=== PATIENT | female | born 1940 | race Caucasian/White ===

== ENCOUNTER 2018-01-18 01:07 | Outpatient (CLI) | payer MEDICARE, SELFPAY ==
[2018-01-18 11:33] LABS: Abs Immature Grans 0.02 k/cumm (0.0-0.09); Absolute Basophil Count 0.04 k/cumm (0.0-0.2); Absolute Eosinophil Count 0.17 k/cumm (0.0-0.7); Absolute Lymphocyte Count 1.99 k/cumm (1.2-3.4); Absolute Monocyte Count 0.63 k/cumm (0.11-0.7); Absolute Neutrophil Count 5.02 k/cumm (1.2-6.7); Basophils % 0.5; Eosinophils % 2.2; HCT 39.4 % (36.0-46.0); HGB 12.5 g/dL (12.0-15.5); Immature Grans % 0.3; Lymphocytes % 25.3; Mean Corp. HGB Concentration 31.7 g/dL (32.0-36.0); Mean Corpuscular Hemoglobin 25.1 pg (27.0-33.0); Mean Platelet Volume 10.4 fL (8.0-11.0); Neutrophils % 63.7; Platelet Count 237 x1000/uL (130-400); RBC 4.99 m/cumm (4.00-5.20); RBC Distribution Width 14.9 % (11.7-14.6); White Blood Cell Count 7.87 k/cumm (4.4-10.8)
[2018-01-18 11:48] LABS: ALT 17 U/L (12-78); AST 18 U/L (15-37); Albumin 3.8 g/dL (3.4-5.0); Alkaline Phosphatase 75 U/L (46-116); Anion Gap 8.3 mmol/L (3-11); BUN 18 mg/dL (7-18); Bilirubin, Total 0.6 mg/dL (0.2-1.0); CO2 29.7 mmol/L (21.0-32.0); CREATININE 0.64 mg/dL (0.55-1.02); Calcium 8.9 mg/dL (8.5-10.1); Chloride 104 mmol/L (98-107); Cholesterol 213 mg/dL (50-200); Glucose 102 mg/dL (70-100); HDL Cholesterol 67 mg/dL (40-60); LDL CHOLESTEROL 120 mg/dL (<100); Potassium 4.5 mmol/L (3.5-5.1); Sodium 142 mmol/L (136-145); Total Protein 7.1 g/dL (6.4-8.2); Triglyceride 139 mg/dL (30-150)
== END 2018-01-18 01:27 ==
PROVIDERS: PCP Family Medicine; Visit Provider Family Medicine
DX: I10 Essential (primary) hypertension (principal); E78.00 Pure hypercholesterolemia, unspecified
CPT/HCPCS: 36415; 80053; 80061; 83721; 85025

== ENCOUNTER 2019-03-24 09:34 | Outpatient (CLI) | payer MEDICARE, SELFPAY ==
[2019-03-24 13:39] LABS: Anion Gap 9.1 mmol/L (3-11); BUN 21 mg/dL (7-18); CO2 29.9 mmol/L (21.0-32.0); CREATININE 0.76 mg/dL (0.55-1.02); Calcium 9.6 mg/dL (8.5-10.1); Calculated LDL 129 mg/dL; Chloride 102 mmol/L (98-107); Cholesterol 218 mg/dL (<200); Glucose 106 mg/dL (74-106); HDL Cholesterol 66 mg/dL (40-60); Sodium 141 mmol/L (136-145); Triglyceride 115 mg/dL (<150)
[2019-03-24 14:10] LABS: Hemoglobin A1C 5.9 % (4.5-6.2)
== END 2019-03-24 09:54 ==
PROVIDERS: PCP Family Medicine; Visit Provider Nurse Practitioner Family
DX: E78.5 Hyperlipidemia, unspecified (principal); R73.01 Impaired fasting glucose
CPT/HCPCS: 36415; 80048; 80061; 83036

== ENCOUNTER 2019-05-05 01:22 | Outpatient (CLI) | payer MEDICARE, SELFPAY ==
--- NOTE | 2019-05-05 12:11 | DI.MAMMO_ITS ---
EXAM: MG MAMMO SCREENING CLINICAL HISTORY: SCREENING Z12.39. TECHNIQUE: Full field digital CC and MLO mammographic images were obtained with 3D tomosynthesis and utilizing computer aided detection (CAD). COMPARISON: 2009 through 2016 FINDINGS: Breast density: B Masses/Architectural Distortion: None seen. Microcalcifications: No suspicious pleomorphic-type calcifications are seen. Skin Thickening/Nipple Retraction: None. Axilla: Unremarkable. IMPRESSION: 1. BI-RADS category 1, negative. No significant interval change with no specific features of maligna ncy noted. 2. Unless there is more urgent need, screening mammography is recommended, as per [employer] guidelines. BI-RADS Cat 1 - Negative Breast Density - Category B - Scattered areas of fibroglandular density A negative radiographic report should not delay biopsy if a dominant or clinically suspicious mass is present. Up to ten percent of cancers are not identified on mammography. A negative report may reinforce clinical impression. Adenosis and dense breasts may obscure an underlying neoplasm. False positive reports average 6 to 10%. Patient will receive a letter notifying them of these results.
== END 2019-05-05 01:42 ==
PROVIDERS: PCP Nurse Practitioner Family; Visit Provider Nurse Practitioner Family
DX: Z12.31 Encounter for screening mammogram for malignant neoplasm of breast (principal)
CPT/HCPCS: 77063; 77067

== ENCOUNTER → 2019-05-15 11:10 | Outpatient (BNVA) | payer MEDICARE, SELFPAY | PROVIDERS: PCP Nurse Practitioner Family; Referring Provider Nurse Practitioner Family; Visit Provider Physical Therapy Assistant | DX: Z86.010 Personal history of colon polyps (principal); Z12.11 Encounter for screening for malignant neoplasm of colon ==

== ENCOUNTER 2019-06-09 07:20 | Day surgery (SDC) | payer MEDICARE, SELFPAY ==
--- NOTE | 2019-06-09 07:01 | W.COLOREPORT ---
Date of service: 06/09/19 Time of Service: 08:29 Colonoscopy Report Date of procedure: 06/09/19 Pre-op diagnosis general: Colon Cancer Screening and Hx of colon polyps Post-op diagnosis procedure note: other (Polyps and mild batista-diverticulosis) Procedure: Colonoscopy with polypectomy Surgeon: Ashley Goldstein Anesthesia proc note operative: other (General/ ASA 3/ Thu Aly, KIMBERLY) Estimated blood loss (mL): 3 Pathology: other (Rectal polyp and descending polyp) Complications: None Disposition: same day Indications: 78 y/o female with history of HTN, hyperlipidemia and chronic low back pain presents for colonoscopy screening pre-op. Her last screening was in 2012, which was remarkable for tubular adenoma. She denies a family history of colon cancer. She denies any changes in bowel habits including bloody or black tarry stools, abdominal pain, or diarrhea. She does report occasional constipation which she directly relates to her use of tramadol for back pain. She takes OTC Miralax or stool softners to resolve the issue. Prep: Miralax/Dulcolax Procedure Start Time: :29 Procedure End Time: 08:51 Retraction Time: 15 minutes Findings: 2 small polyps and mild diverticulosis of the entire colon Procedure Description: After informed consent was obtained the patient was taken to the procedure room and placed in a left decubitous position. Monitors were applied and a time out was done. The patients name, date of , procedure, allergies to medications and metal in their body was reviewed. The patient was then sedated. Once sedated and comfortable a rectal exam was done. External exam was normal. Internal exam revealed a normal sphincter tone and no palpable masses. The scope was then introduced and retro-flexed. No internal hemorrhoids were identified. The scope was then advanced to the cecum without difficulty. The TI and appendiceal orifice were identified. The prep was good. The scope was then slowly retracted over 15 minutes back into the rectum. Polyps were removed with cold forceps in the rectum and descending colon. Mild batista-diverticulosis was noted. The scope was removed and the patient was woken up and taken back to Same day surgery in stable condition. The patient tolerated the procedure well and there were no immediate complications. Follow up: The patient should follow up in 3-5 years depending on her health, unless they develop changes in bowel habits or other new gastrointestinal complaints.
--- NOTE | 2019-06-09 07:02 | W.PM.DSUDISC ---
Discharge Plan Disposition Patient Disposition: HOME Condition: Good Discharge Details Reason For Visit: Colon Cancer Screening/ Hx of polyp Attending Provider: Ashley Goldstein Primary Care Provider: Lulu Ricci Home Meds and New Rx's Prescriptions: Continued lovastatin 40 mg tablet 40 mg PO HS Qty: 90 RF: 4 Prevnar 13 (PF) 0.5 mL syringe 0.5 ml IM ONCE Qty: 0.5 RF: 0 triamcinolone acetonide 0.5 % ointment 1 applic Topical BID PRN (Reason: dermatitis) Qty: 15 RF: 1 cholecalciferol (vitamin D3) 4,000 unit capsule 4,000 unit PO DAILY RF: 0 aspirin [Aspir-81] 81 MG tablet,delayed release (DR/EC) 81 mg PO DAILY RF: 0 vitamin E 400 UNIT capsule 400 unit PO DAILY RF: 0 polyethylene glycol 3350 [Miralax] 17 GM powder in packet 17 g PO DAILY PRNQty: 255 RF: 0 acetaminophen [Acetaminophen Extra Strength] 500 MG tablet 1,000 mg PO Q6H PRN PRNRF: 0 docusate sodium 100 MG capsule 100 mg PO HS PRNRF: 0 hydrochlorothiazide 12.5 mg capsule 12.5 mg PO DAILY Qty: 90 RF: 3 tramadol 50 mg tablet 50 mg PO PRN PRN (Reason: pain) Qty: 30 RF: 5 multivitamin [Multi-Day] 1 EACH tablet 1 tab PO DAILY RF: 0 Discontinued polyethylene glycol 3350 17 gram/dose powder 238 g PO ONCE Qty: 238 RF: 0 bisacodyl [Dulcolax (bisacodyl)] 5 mg tablet,delayed release (DR/EC) 5 mg PO ONCE Qty: 4 RF: 0 No Action meloxicam [Mobic] 15 mg tablet 15 mg PO DAILY PRN (Reason: chronic low back pain) RF: 0 Discharge Instructions Instructions: Diverticulosis (DC), Colorectal Polyps (DC) Additional Instructions: Findings: 2 small polyps Mild batista-diverticulosis Follow up: 3-5 years Please call if you develop: fevers >101.5 Nausea or Vomiting Abdominal pain that is not transient DAY SURGERY UNIT POST ENDOSCOPY INSTRUCTIONS 1. Because there will be medication in your system for the next 24 hours, you may feel a little sleepy. Your coordination will be affected. Therefore: a. Do not drive or operate dangerous equipment for 24 hours. b. Do not drink alcohol beverages for 24 hours (not even beer). c. Plan to go home and rest for the day. 2. Generally there are no restrictions on your activity after a day or so has gone by, but you may feel a bit fatigued for a few days. 3 After you arrive home you may have a light meal and return to a normal diet as you can tolerate it without feeling sick to your stomach. 4. After surgery, you may feel pain or discomfort. This should be only transient, but if it persists please contact your doctor. 5. If there are any questions regarding the findings of your procedure, please feel free to contact your doctor. 6. If you are unable to contact your doctor with a problem, contact the hospital at [phone]. 7. Continue all your regular medications unless directed otherwise. I understand the above instructions and have no questions. Signature of Patient or Responsible Adult Escort Date/Time Name of Responsible Adult Escort Signature of Nurse Date/Time Activity:: Activity as Tolerated Diet:: High Fiber diet Discharge Orders Discharge Orders: Discharge Order (Routine); Ordered 06/09/19 Ordered By: Ashley Goldstein
[2019-06-09 07:28] VITALS: BP 137/82; PULSE 75; RESP 16; TEMP 36.9; O2SAT 98
[2019-06-09] MEDS: Lactated Ringers 1,000 ML 80 ML IV (07:57)
--- NOTE | 2019-06-09 08:30 | BOWEL_PTH ---
PATIENT: Ivelisse Lange LOC: [facility] U#:[id number] AGE/SX: 78/F ROOM: RE06/09/[address]: Ashley Goldstein MD : [id number] BED: DIS: 06/09/2019 SPEC #: [id number] RECD: 06/09/19 12:36 STATUS: MIK REQ #: [id number] MARJORIE: 06/09/19 08:[address]: Ashley Goldstein DEPT: Surgical Specimen RECD BY: Melody uJdge ENTERED: 06/09/19 12:38 SP TYPE: Bowel OTHR DR: Lulu Ricci, [facility] Tissues: 1 - BIOPSY BOWEL 2 - BIOPSY BOWEL Procedures: GROSS AND MICRO LEVEL 4 Comments: [id number]
[2019-06-09 09:37] VITALS: BP 129/61; PULSE 62; RESP 16; TEMP 36.4; O2SAT 100
[2019-06-09] MEDS: Tetracaine 0.5% 4 ML BTL OP (09:47)
== END 2019-06-09 10:00 | disposition home or self-care (01) ==
LOC: SUR 07:21
PROVIDERS: PCP Nurse Practitioner Family; Visit Provider Surgery
PROC: 0DJD8ZZ Inspection of Lower Intestinal Tract, Via Natural or Artificial Opening Endoscopic (ICD-10-PCS; CPT 45378; principal; 2019-06-09 08:15)
DX: Z12.11 Encounter for screening for malignant neoplasm of colon (principal); D12.4 Benign neoplasm of descending colon; K62.1 Rectal polyp; K57.30 Diverticulosis of large intestine without perforation or abscess without bleeding; Z86.010 Personal history of colon polyps; I10 Essential (primary) hypertension
CPT/HCPCS: 45380; 88305

== ENCOUNTER 2019-11-24 10:52 | Outpatient (CLI) | payer MEDICARE, SELFPAY ==
--- NOTE | 2019-11-24 10:15 | DI.RAD_ITS ---
EXAM: XR LUMBAR SPINE COMPLETE CLINICAL HISTORY: evaluate LBP. TECHNIQUE: 2D digital imaging was performed. COMPARISON: No exams were available for comparison FINDINGS: The vertebral bodies are well maintained in height. There is severe narrowing of the L1-2, L3-4 and L4-5 disc spaces and moderate narrowing of the L 2 3 disc space. Facet degenerative changes are pres ent throughout, greatest at L4-5. There is degenerative scoliosis. There are also degenerative rios ges of the SI joints. IMPRESSION: Advanced degenerative changes. DATA REPOSITORY: RADIATION DOSE DELIVERED:
--- NOTE | 2019-11-24 10:15 | DI.RAD_ITS ---
EXAM: XR HIP RT AP LAT ONLY CLINICAL HISTORY: evaluate LBP and R hip pain. TECHNIQUE: 2D digital imaging was performed. COMPARISON: No exams were available for comparison FINDINGS: BONES: No acute fracture is present. No bony destructive lesion is seen. There is mild spurring at th e acetabulum as well as SI joint. JOINTS: No dislocation present. SOFT TISSUE: Normal. IMPRESSION: Mild degenerative changes. DATA REPOSITORY: RADIATION DOSE DELIVERED:
== END 2019-11-24 11:12 ==
PROVIDERS: PCP Nurse Practitioner Family; Referring Provider Nurse Practitioner Family; Visit Provider Student in an Organized Health Care Education/Training Program
DX: G89.29 Other chronic pain (principal); M54.5 Low back pain; M47.816 Spondylosis without myelopathy or radiculopathy, lumbar region; M16.11 Unilateral primary osteoarthritis, right hip
CPT/HCPCS: 99203; 99214; 72110; 73502

== ENCOUNTER 2019-12-03 02:56 | Outpatient (CLI) | payer MEDICARE, SELFPAY ==
--- NOTE | 2019-12-03 07:45 | DI.MRI_ITS ---
EXAM: MR LUMBAR SPINE WO CLINICAL HISTORY: LOW BACK PAIN, M54.5,G89.29. TECHNIQUE: Multiplanar multisequence MRI was performed. COMPARISON: No exams were available for comparison FINDINGS: MR examination of lumbosacral spine was performed according to the usual protocol. There is a mild b iconvex thoracolumbar scoliosis. Note is made of normal diameter of aorta. Unremarkable appearance of the kidneys as visualized. No significant bony signal abnormality identified in the lumbar region. There is loss of height of i ntervertebral discs throughout the lower thoracic and lumbar spine. There are disc bulges at multipl e levels without evidence of a focal disc herniation. The conus medullaris appears intact. At T11-12, there is a moderate disc bulge. No disc herniation. No neural foraminal stenosis, central canal stenosis, or abnormality of the conus. No significant findings at T12-L1. At L1-2 there is a mild disc bulge and there is mild deformity of the lateral wall of the spinal renata l secondary to facet hypertrophy. Moderate bilateral facet arthropathy. No disc herniation, central canal spinal stenosis, or neural foraminal stenosis. At L2-3 there are no significant findings. At L3-4 there is moderate bilateral hypertrophic facet arthropathy with mild deformity of the lateral reynolds of the spinal canal bilaterally. No central canal spinal stenosis. There is mild bilateral n eural foraminal stenosis. There is no disc herniation. At L4-5 there is moderate bilateral hypertrophic facet arthropathy with mild deformity of the lateral reynolds of the spinal canal bilaterally, no central canal spinal stenosis or neural foraminal stenosis . At L5-S1 there is a mild disc bulge with no disc herniation. There are moderate changes of facet art hropathy. No central canal spinal stenosis or neural foraminal stenosis. IMPRESSION: Multilevel facet arthropathy as described above. No disc herniation in the lumbar region. No signif icant central spinal canal spinal stenosis. Mild bilateral neural foraminal stenosis noted at L3-4. DATA REPOSITORY:
== END 2019-12-03 03:16 ==
PROVIDERS: PCP Nurse Practitioner Family; Visit Provider Student in an Organized Health Care Education/Training Program
DX: G89.29 Other chronic pain (principal); M54.5 Low back pain; M47.816 Spondylosis without myelopathy or radiculopathy, lumbar region
CPT/HCPCS: 72148

== ENCOUNTER 2020-02-17 10:27 | Outpatient (CLI) | payer MEDICARE, SELFPAY ==
--- NOTE | 2020-02-17 06:00 | DI.RAD_ITS ---
EXAM: XR PAIN CLINIC SACRIOILIAC 2V CLINICAL HISTORY: Dx: Sacroiliac Joint Dysfunction. TECHNIQUE: Fluoroscopy was provided for the referring physician for guidance with performing injecti on procedure. COMPARISON: No exams were available for comparison FINDINGS: Please see procedure note for details. Fluoro time: 32.0 s, 14.51 mGy RADIATION DOSE DELIVERED:
[2020-02-17 10:37] VITALS: BP 143/86; PULSE 68; RESP 16; TEMP 36.7; O2SAT 98
--- NOTE | 2020-02-17 11:38 | PDOC.PAIN_ITS ---
Pain Clinic Procedure Note Procedure Note Procedure Note: INTRA-ARTICULAR SI JOINT INJECTION ANTIONE FLORENTINO has been referred to the [facility] for intra- articular SI joint injection. pre-operative diagnosis: disorder of sacrum post-operative diagnosis: same as above COMMENTS: right sided low back pain with radiation to buttock. patient was evaluated by Ms Keren Cervantes APRN in clinic and referred for a diagnostic and therapeutic right SI joint injection. Patient was interviewed and the medical record reviewed. There were no medical, pharmacologic, radiographic or other structural contraindications to attempting fluoroscopically guided intra-articular SI joint injection. Risks and expected side effects as well as potential benefit of the procedure were reviewed and voiced concerns addressed. The printed consent form was signed and witnessed. Standard time-out procedure was performed. Patient was placed in the prone position on the fluoroscopy table and automated blood pressure cuff and pulse oximeter applied. The skin entry point for appr oaching right SI joints was identified under the most advantageous fluoroscopic view and marked. Following thorough Chlorhexadine preparation of the skin and draping and 1% lidocaine infiltration of the skin entry point and subcutaneous tissues, a 22 gauge spinal needle was placed under fluoroscopic guidance into right SI joints was identified under the most advantageous fluoroscopic view and marked. Following thorough Chlorhexadine preparation of the skin and draping and 1% lidocaine infiltration of the skin entry point and subcutaneous tissues, a 22 gauge spinal needle was placed under fluoroscopic guidance into right SI joint. Intra-articular placement was confirmed by a clear arthrogram resulting from the injection of 0.25ml Omnipaque 240, 1ml 1% lidocaine, and 40mg Depomedrol were injected intra-articularily with an initial reproduction of a significant component of the usual pain. Vital signs were stable throughout the procedure and were as recorded in the docflowsheet by the nursing staff. Follow up plans and appointments were discussed with the patient. Post procedure instruction was given as documented in nursing documentation and having met discharge criteria, and was discharged from the [facility]. COMMENTS: patient tolerated procedure well. Bianca Edmondson MD Pain Management CC: [facility]
[2020-02-17] MEDS: Omnipaque 240 MG/ML 50 ML BTL IJ (11:43)
[2020-02-17] MEDS: methylPREDNISolone ACETATE 40 MG/ML VIAL IJ (11:44)
[2020-02-17 11:49] VITALS: BP 151/83; PULSE 78; RESP 20; O2SAT 93
== END 2020-02-17 10:47 ==
PROVIDERS: PCP Nurse Practitioner Family; Visit Provider Internal Medicine
DX: M53.3 Sacrococcygeal disorders, not elsewhere classified (principal)
CPT/HCPCS: 27096; 72200; J1030; Q9967

== ENCOUNTER 2020-04-13 03:36 | Outpatient (CLI) | payer MEDICARE, SELFPAY ==
[2020-04-13 12:57] LABS: Anion Gap 7.4 mmol/L (3-11); BUN 18 mg/dL (7-18); CO2 32.6 mmol/L (21.0-32.0); CREATININE 0.76 mg/dL (0.55-1.02); Calcium 9.1 mg/dL (8.5-10.1); Calculated LDL 126 mg/dL (<100); Chloride 102 mmol/L (98-107); Cholesterol 233 mg/dL (<200); Glucose 102 mg/dL (74-106); HDL Cholesterol 70 mg/dL (40-60); Potassium 3.6 mmol/L (3.5-5.1); Sodium 142 mmol/L (136-145); Triglyceride 188 mg/dL (<150)
== END 2020-04-13 03:56 ==
PROVIDERS: PCP Nurse Practitioner Family; Visit Provider Nurse Practitioner Family
DX: I10 Essential (primary) hypertension (principal); R73.03 Prediabetes; E78.5 Hyperlipidemia, unspecified
CPT/HCPCS: 36415; 80048; 80061; 83036

== ENCOUNTER 2021-07-28 09:41 | Outpatient (CLI) | payer MEDICARE, SELFPAY ==
[2021-07-28 10:32] VITALS: BP 164/92; PULSE 77; RESP 16; TEMP 37; O2SAT 99
--- NOTE | 2021-07-28 10:53 | DI.RAD_ITS ---
Exam(s) XR PAIN CLINIC LUMBAR SP 2V EXAM: XR PAIN CLINIC LUMBAR SP 2V CLINICAL HISTORY: Dx: Lumbar Spondylosis. TECHNIQUE: Fluoroscopy was provided for the referring physician for guidance with performing injecti on procedure. COMPARISON: No exams were available for comparison FINDINGS: Please see procedure note for details. Fluoro time: 50.5 RADIATION DOSE DELIVERED: trevin Abdul=21.96 mGy
[2021-07-28] MEDS: Bupivacaine 0.5% Pres-Free 10 ML VIAL IJ (10:54)
[2021-07-28] MEDS: Omnipaque 240 MG/ML 50 ML BTL IJ (10:54)
--- NOTE | 2021-07-28 10:54 | PDOC.PAIN ---
Pain Clinic Procedure Note Procedure Note Procedure Note: Lumbar/Sacral Medial Branch Blocks Ivelisse Lange has been referred to the [facility] for lumbar/sacral medial branch blocks. COMMENTS: I previously evaluated her in our clinic. Pre-procedure pain VAS = 9/10. Dx: Lumbosacral spondylosis without myelopathy Patient was interviewed and the medical record reviewed. There were no medical, pharmacologic, radiographic or other structural contraindications to attempting fluoroscopically guided local anesthetic lumbar/sacral medial branch blocks. Risks and expected side effects as well as potential benefit of the procedure were reviewed and voiced concerns addressed. The printed consent form was signed and witnessed. Standard time-out procedure was performed. Patient was placed in the prone position on the fluoroscopy table and automated blood pressure cuff and pulse oximeter applied. The skin entry points for approaching the anatomic target points of the segmental medial branches of right L2-L5DR were identified with anfluoroscopy and marked. Following thorough Chlorhexadine preparation of the skin and draping and 1% lidocaine infiltration of the skin entry points and subcutaneous tissues, a 22 gauge spinal needle was placed under fluoroscopic guidance down on to the target point for each respective segmental medial branch.Position was confirmed in A/P, oblique and lateral views with 0.25ml of omnipaque 240. At this point I injected 0.5ml of 0.5% Bupivacaine at each segmental sensory nerve. Vital signs were stable throughout the procedure and were as recorded in the docflowsheet by the nursing staff. Follow up plans and appointments were discussed and was instructed to keep careful note of how the usual pain was modified by these injections. Specifically was asked to keep a pain diary for the next 24 hours using a numeric pain scale of 0-10 and report these results at the follow-up visit. Post procedure instruction was given as documented in the nursing documentation and having met discharge criteria. Patient was discharged from the Pain Management Center. Based on the medial branches blocked today, if the patient has adequate relief and we are able to proceed to radiofrequency ablation, the treatment should result in the denervation of the right L3-L4, L4-L5, and L5-S1 facet joints. We would expect to denervate a total of 3 facets during the radiofrequency ablation. COMMENTS: Post-procedure pain VAS was 2/10. Aman George DO, MPH [facility]-Pain Management [facility] for [facility] CC: [facility]
[2021-07-28 10:55] VITALS: BP 157/75; PULSE 72; RESP 17; O2SAT 100
== END 2021-07-28 09:42 | disposition home or self-care (01) ==
LOC: PC 09:44
PROVIDERS: PCP Nurse Practitioner Family; Visit Provider Preventive Medicine Occupational Medicine
DX: M47.817 Spondylosis without myelopathy or radiculopathy, lumbosacral region (principal)
CPT/HCPCS: 64493; 64494; 64495; 72100; Q9967

== ENCOUNTER 2021-08-01 04:19 | Outpatient (CLI) | payer MEDICARE, SELFPAY ==
[2021-08-01 12:02] LABS: Hemoglobin A1C 6.2 % (<5.7)
[2021-08-01 12:24] LABS: Anion Gap 9.3 mmol/L (3-11); BUN 20 mg/dL (7-18); CO2 29.7 mmol/L (21.0-32.0); CREATININE 0.7 mg/dL (0.55-1.02); Calcium 9.4 mg/dL (8.5-10.1); Chloride 103 mmol/L (98-107); Glucose 106 mg/dL (74-106); Sodium 142 mmol/L (136-145)
== END 2021-08-01 04:20 | disposition home or self-care (01) ==
LOC: LBO 04:19
PROVIDERS: PCP Nurse Practitioner Family; Visit Provider Nurse Practitioner Family
DX: I10 Essential (primary) hypertension (principal); R73.03 Prediabetes
CPT/HCPCS: 36415; 80048; 83036

== ENCOUNTER 2021-08-25 08:51 | Outpatient (CLI) | payer MEDICARE, SELFPAY ==
--- NOTE | 2021-08-25 06:00 | DI.RAD_ITS ---
Exam(s) XR PAIN CLINIC LUMBAR SP 2V EXAM: XR PAIN CLINIC LUMBAR SP 2V CLINICAL HISTORY: Dx: Lumbar Spondylosis TECHNIQUE: 2D and realtime digital imaging was performed. COMPARISON: No exams were available for comparison FINDINGS: C-arm fluoroscopy was utilized by Dr. George during reported lumbar medial branch block, hard copies sh ow needle placement and injections on the right at what appear to be the L2-3, L3-4, L4-5 and L5-S1 l evels. IMPRESSION: RADIATION DOSE DELIVERED: trevin Abdul=20.83 mGy
[2021-08-25 09:02] VITALS: BP 175/85; PULSE 75; RESP 20; TEMP 36.6; O2SAT 99
--- NOTE | 2021-08-25 09:33 | PDOC.PAIN ---
Pain Clinic Procedure Note Procedure Note Procedure Note: Lumbar/Sacral Medial Branch Blocks Ivelisse Lange has been referred to the Pain Management Center for lumbar/sacral medial branch blocks. COMMENTS: She did very well with her first LMBB on 07/28/21. Her pre-procedure pain VAS was 10/10. Dx: Lumbosacral spondylosis without myelopathy Patient was interviewed and the medical record reviewed. There were no medical, pharmacologic, radiographic or other structural contraindications to attempting fluoroscopically guided local anesthetic lumbar/sacral medial branch blocks. Risks and expected side effects as well as potential benefit of the procedure were reviewed and voiced concerns addressed. The printed consent form was signed and witnessed. Standard time-out procedure was performed. Patient was placed in the prone position on the fluoroscopy table and automated blood pressure cuff and pulse oximeter applied. The skin entry points for approaching the anatomic target points of the segmental medial branches of the right L2-L5DR were identified with anfluoroscopy and marked. Following thorough Chlorhexadine preparation of the skin and draping and 1% lidocaine infiltration of the skin entry points and subcutaneous tissues, a 22 gauge spinal needle was placed under fluoroscopic guidance down on to the target point for each respective segmental medial branch.Position was confirmed in A/P, oblique and lateral views with 0.25ml of omnipaque 240. Coult be this method .5ml 0.5% Bupivacaine was injected or 1% Lidocaine. Vital signs were stable throughout the procedure and were as recorded in the docflowsheet by the nursing staff. Follow up plans and appointments were discussed and was instructed to keep careful note of how the usual pain was modified by these injections. Specifically was asked to keep a pain diary for the next 24 hours using a numeric pain scale of 0-10 and report these results at the follow-up visit. Post procedure instruction was given as documented in the nursing documentation and having met discharge criteria. Patient was discharged from the Pain Management Center. Based on the medial branches blocked today, if the patient has adequate relief and we are able to proceed to radiofrequency ablation, the treatment should result in the denervation of the right L3-L4, L4-L5, and L5-S1 FACET JOINTS. We would expect to denervate a total of 4 facets during the radiofrequency ablation. COMMENTS: Post-procedure pain VAS 0/10. Aman George DO, MPH [facility]-Pain Management [facility]-Center for Pain Management CC: [facility]
[2021-08-25 09:41] VITALS: BP 141/81; PULSE 74; RESP 18; O2SAT 100
[2021-08-25] MEDS: Lidocaine 2% Pres-Free 5 ML VIAL IJ (09:43)
[2021-08-25] MEDS: Omnipaque 240 MG/ML 50 ML BTL IJ (09:44)
== END 2021-08-25 08:52 | disposition home or self-care (01) ==
LOC: PC 08:51
PROVIDERS: PCP Nurse Practitioner Family; Visit Provider Preventive Medicine Occupational Medicine
DX: M47.817 Spondylosis without myelopathy or radiculopathy, lumbosacral region (principal)
CPT/HCPCS: 64493; 64494; 64495; 72100; Q9967

== ENCOUNTER 2021-09-15 10:50 | Outpatient (CLI) | payer MEDICARE, SELFPAY ==
[2021-09-15 11:08] VITALS: BP 152/88; PULSE 73; RESP 20; TEMP 36.9; O2SAT 99
[2021-09-15] MEDS: fentaNYL 100 MCG/2 ML VIAL IVP (11:40)
[2021-09-15] MEDS: Midazolam 2 MG/2 ML VIAL IVP (11:40)
--- NOTE | 2021-09-15 12:05 | DI.RAD_ITS ---
Exam(s) XR PAIN CLINIC LUMBAR SP 2V EXAM: XR PAIN CLINIC LUMBAR SP 2V CLINICAL HISTORY: lumbar spondylosis TECHNIQUE: 2D and realtime digital imaging was performed. CONTRAST MATERIAL: Refer to procedure report. COMPARISON: No exams were available for comparison FINDINGS: Fluoroscopy was provided for Dr. George during the performance of a right lumbar radiofrequency ablati on. Please refer to the procedure report for complete details. Ka,r=30.13 mGy IMPRESSION:
[2021-09-15 12:06] VITALS: BP 150/72; PULSE 70; RESP 15; O2SAT 99
--- NOTE | 2021-09-15 12:09 | PDOC.PAIN ---
Pain Clinic Procedure Note Procedure Note Procedure Note: Right Lumbar Radiofrequency with Coolief Machine PROCEDURE NOTE Date of Service: September 15, 2021 Patient: Ivelisse Lange Provider: Aman George DO, MPH Pre Operative Diagnosis: Lumbosacral Spondylosis without Myelopathy Post Operative Diagnosis: Same Post procedure pain; VAS= 6/10 PROCEDURE: Radiofrequency Ablation of medial branches - RT L2 L3 L4 L5 and lateral branch of the right S1. Ivelisse Lange was brought into the fluoroscopy suite and positioned into the prone position on the fluoroscopy table and allowed to adjust to a position of comfort. A grounding pad was placed on the left thigh. The lumbar region was widely prepped with a chloraprep solution, allowed to air dry and draped in standard sterile surgical fashion. Local anesthesia was provided by 2 mL of 2% Lidocaine delivered with a 25g needle. A 17g 100 mm radiofrequency introducer needle was placed to the planned anatomic targets guided with intermittent fluoroscopy with a perpendicular approach to terminally place at the junction of the superior articular process and the transverse process of the right L3 L4 L5, the base of the sacral ala on the right for the L5 medial branch nerve and the area between base of the sacral ala to the right S1 foramen. The stylets were removed and radiofrequency probes with a 4mm active tip were then inserted. Needle tip position of the probes was verified in the AP, oblique, and lateral views. At each site, the medial branch nerve was stimulated at 2 Hz to a maximum 1-2 volts determined to finalize safe needle and electrode placement. The patient was awake and responsive during this portion of the procedure. Each target was anesthetized with 1-2 mL of 2% Lidocaine for anesthesia for lesioning and then each target was lesioned at 80 degrees Celsius for 2 minutes and 30 seconds. Tissue impedences were noted to be between 250 and 500 Ohms. Electrodes and needles were then removed and bandages placed over the needle placement sites, the patient then returned to the supine position on a stretcher and transported to the recovery room without hemodynamic, neurologic, or allergic reactions. Fluoroscopic images were printed for hard copy recording and digitally archived. POST PROCEDURE EVALUATION: IMPRESSION: 1. Summary of procedure. Medication given is documented in the MAR. 2. The patient will be contacted in 1-3 weeks 3. Estimated Blood Loss: <5 mls 4. Fluoroscopy time: Documented in the EMR. Follow up plans and appointments were discussed with the Ivelisse . Post procedure instruction was given as documented in nursing documentation and having met discharge criteria, Ivelisse was discharged from the Pain Management Center. COMMENTS: No apparent complications. Post-procedure pain: VAS= 0/10. F/U with our office as needed. I personally performed this entire procedure. Aman George DO, MPH [facility]-Pain Management [facility]-Center for Pain Management
[2021-09-15] MEDS: Lactated Ringers 500 ML 30 ML IV (12:20)
[2021-09-15] MEDS: Lidocaine 2% Pres-Free 5 ML VIAL IJ (12:21)
[2021-09-15] MEDS: Bupivacaine 0.5% Pres-Free 10 ML VIAL IJ (12:22)
[2021-09-15] MEDS: methylPREDNISolone ACETATE 40 MG/ML VIAL IJ (12:23)
== END 2021-09-15 10:51 | disposition home or self-care (01) ==
LOC: PC 10:50
PROVIDERS: PCP Nurse Practitioner Family; Visit Provider Preventive Medicine Occupational Medicine
DX: M47.817 Spondylosis without myelopathy or radiculopathy, lumbosacral region (principal)
CPT/HCPCS: 64635; 64636; 72100; J1030; J2250; J3010

== ENCOUNTER 2021-09-29 19:15 | Outpatient (REF) | payer MEDICARE, SELFPAY ==
[2021-09-29 20:09] LABS: Abs Immature Grans 0.07 10^3/uL (0.0-0.06); Absolute Basophil Count 0.06 10^3/uL (0.0-0.2); Absolute Eosinophil Count 0.09 10^3/uL (0.0-0.7); Absolute Lymphocyte Count 1.64 10^3/uL (1.2-3.4); Absolute Monocyte Count 1.16 10^3/uL (0.1-0.8); Basophils % 0.4; Eosinophils % 0.6; HCT 39.5 % (36.0-46.0); HGB 12.2 g/dL (11.2-15.7); Immature Grans % 0.5; Lymphocytes % 10.6; MCH 25.2 pg (27.0-33.0); MCHC 30.9 % (32.0-36.0); MCV 81 fL (80-95); MPV 10.4 fL (8.0-11.0); Monocytes % 7.5; Neutrophils % 80.4; Platelet Count 238 10^3/uL (130-400); RBC 4.85 10^6/uL (3.93-5.22); RDW 13.6 % (11.7-14.6); RDW-SD 40.3 fL; WBC 15.51 10^3/uL (4.4-10.8)
[2021-09-29 20:10] LABS: Absolute Neutrophil Count 12.47 10^3/uL (1.2-6.7)
[2021-09-29 20:14] LABS: BUN 20 mg/dL (7-18); CREATININE 0.7 mg/dL (0.55-1.02); Calcium 9.2 mg/dL (8.5-10.1); Chloride 102 mmol/L (98-107); Glucose 119 mg/dL (74-106); Potassium 3.4 mmol/L (3.5-5.1); Sodium 140 mmol/L (136-145)
[2021-09-29 20:34] LABS: Bilirubin Negative (Negative); Blood Trace-intact (Negative); Clarity Turbid (Clear); Glucose Negative (Negative); Ketones Negative (Negative); Leukocyte Esterase Negative (Negative); Nitrite Negative (Negative); Specific Gravity >= 1.030 (1.005-1.025); Urobilinogen 0.2 EU/dL (Up TO 0.2)
[2021-09-29 20:51] LABS: C & S Indicated? No; Crystals Many Amorphous HPF (Negative); Mucus Negative (Negative); RBC 0-2 HPF (0-2)
== END 2021-09-29 19:16 | disposition home or self-care (01) ==
LOC: LBN 19:15
PROVIDERS: PCP Nurse Practitioner Family; Visit Provider Nurse Practitioner Family
DX: R10.9 Unspecified abdominal pain (principal); N39.0 Urinary tract infection, site not specified; R39.89 Other symptoms and signs involving the genitourinary system
CPT/HCPCS: 80048; 81003; 81015; 85025

== ENCOUNTER 2022-01-28 12:13 | Emergency (ER) | payer MEDICARE, SELFPAY ==
[2022-01-28 12:18] VITALS: BP 134/77; PULSE 80; RESP 18; TEMP 37.2; O2SAT 98
--- NOTE | 2022-01-28 12:53 | ED.GENADUL_ITS ---
Discharge Plan Disposition Patient Disposition: HOME Condition: Stable Discharge Details Clinical Impression: Facial trauma Primary Care Provider: Lulu Ricci ED Provider: Mohit Toussaint Home Meds and New Rx's Prescriptions: Continued benzonatate 100 mg capsule 100 mg PO TID PRN (Reason: cough) Qty: 14 0RF Rx Instructions: May take 1 capsule every 8 hours for cough as needed. cholecalciferol (vitamin D3) 4,000 unit capsule 4,000 unit PO DAILY lovastatin 40 mg tablet 40 mg PO HS Qty: 90 4RF triamcinolone acetonide 0.5 % ointment 1 applic Topical BID PRN (Reason: dermatitis) Qty: 15 1RF Rx Instructions: Small pea size amount to lateral right lower leg BID when needed, no longer than 14 days hydrochlorothiazide 12.5 mg capsule 12.5 mg PO DAILY Qty: 90 4RF aspirin [Aspir-81] 81 MG tablet,delayed release (DR/EC) 81 mg PO DAILY vitamin E 400 UNIT capsule 400 unit PO DAILY polyethylene glycol 3350 [Miralax] 17 GM powder in packet 17 g PO DAILY PRNQty: 255 acetaminophen [Acetaminophen Extra Strength] 500 MG tablet 1,000 mg PO Q6H PRN PRN diclofenac sodium 75 mg tablet,delayed release (DR/EC) 75 mg PO BID Qty: 90 0RF multivitamin [Multi-Day] 1 EACH tablet 1 tab PO DAILY Discharge Instructions Additional Instructions: based on your exam you likely have a nasal bone bruise, or potentially a nondisplaced fracture (broken bone) that will heal with time and doesn't require any intervention follow up with your primary care provider in 1 week if you have headaches or difficulty with memory if you have severe worsening pain or persistent uncontrolled nasal bleeding return to the emergency department Medical Decision Making 81 yo female with hx of htn, hld, who comes in with bruising of her face. She states she was walking into a building 3 days ago and her foot hit the step causing her to fall forward and landed on her face. She had no loc and got up under her own power. She has since developed bruising to the face and has nasal swelling so came here. She has no headaches, changes in vision, midline c/t/l spine tenderness. no chest or abdomen tenderness. She arrives stable caox4 speaking clearly. She has bruising inferior to both orbits, and the mid nasal bone is swollen but not angulated or have other deformity. Denies any nose bleeding since the fall. Eomi, perrl, no septal hematoma. Suspect she has nose contusion vs nondisplaced fracture. Given lack of loc and no headache doubt tbi, offered to perform ct head/face but given unlikely to have any significant findings requiring intervention she declined to have this done. She has capacity to make her own decisions and I feel that her choice is reasonable given reassuring history and physical. Advised to f/u with pcp and return precautions given Differential Diagnosis Differential Diagnosis: nasal fracture, contusion HPI General Mode of arrival: ambulatory . Date/Time Provider Initiated Documentation: 01/28/22 12:26 . Limitations to Documentation: no limitations . Information obtained by: patient . History of Present Illness 81 year old F presents to the emergency department with the chief complaint of face trauma, described as moderate, Patient started experiencing this day(s) (3) and it has been other (improving). No relieving factors improve symptom(s), No exacerbating factors reported . Patient notes no other symptoms.. Patient did receive the following treatments prior to arrival, none Related Data Home Medications Medication Instructions Recorded Confirmed aspirin 81 mg tablet,delayed 81 mg PO DAILY 11/28/12 09/15/21 release (Aspir-) vitamin E 268 mg (400 unit) capsule 400 unit PO DAILY 11/28/12 09/15/21 multivitamin (Multi-Day tablet) 1 tab PO DAILY 09/18/14 09/15/21 acetaminophen 500 mg tablet 1,000 mg PO Q6H PRN PRN 08/24/15 09/15/21 (Acetaminophen Extra Strength) polyethylene glycol 3350 17 gram 17 g PO DAILY PRN #255 grams 08/24/15 09/15/21 oral powder packet (Miralax) cholecalciferol (vitamin D3) 100 4,000 unit PO DAILY 05/15/19 09/15/21 mcg (4,000 unit) capsule hydrochlorothiazide 12.5 mg capsule 12.5 mg PO DAILY #90 caps 04/01/21 09/15/21 lovastatin 40 mg tablet 40 mg PO HS #90 tabs 04/01/21 09/15/21 triamcinolone acetonide 0.5 % 1 applic topical BID PRN 04/01/21 09/15/21 topical ointment dermatitis #15 grams benzonatate 100 mg capsule 100 mg PO TID PRN cough #14 caps 09/29/21 09/29/21 diclofenac sodium 75 mg 75 mg PO BID #90 tabs 12/22/21 tablet,delayed release Previous Rx's Medication Instructions Recorded hydrochlorothiazide 12.5 mg capsule 12.5 mg PO DAILY #90 caps 04/01/21 lovastatin 40 mg tablet 40 mg PO HS #90 tabs 04/01/21 triamcinolone acetonide 0.5 % 1 applic topical BID PRN 04/01/21 topical ointment dermatitis #15 grams benzonatate 100 mg capsule 100 mg PO TID PRN cough #14 caps 09/29/21 diclofenac sodium 75 mg 75 mg PO BID #90 tabs 12/22/21 tablet,delayed release Allergies Allergy/AdvReac Type Severity Reaction Status Date / Time Penicillins Allergy Severe Skin Rash Verified 09/29/21 15:14 piroxicam Allergy Unknown Verified 09/29/21 15:14 codeine AdvReac Severe chest pain Verified 09/29/21 15:14 morphine AdvReac Intermediate Nausea Verified 09/29/21 15:14 General Stated Complaint: Trauma AZAR: 3 Review of Systems All systems reviewed & are unremarkable except as noted in HPI and below Constitutional Constitutional: Denies chills, Denies fever(s) and Denies weakness Eyes Eyes: Denies loss of vision Cardiovascular Cardiovascular: Denies chest pain and Denies dyspnea Respiratory Respiratory: Denies cough and Denies dyspnea Gastrointestinal Gastrointestinal: Denies abdominal pain, Denies nausea and Denies vomiting Neurologic Neurologic: Denies loss of vision and Denies weakness PFSH All Active Problems (Updated 01/28/22 @ 12:58 by Mohit Toussaint MD) Facial trauma (Acute) Lumbosacral spondylosis without myelopathy (Acute) Essential hypertension (Chronic) Hyperlipidemia (Chronic) Prediabetes (Chronic) Osteoarthritis (Chronic) Obesity (Chronic) Lumbar spondylosis (Chronic) Arthropathy of right sacroiliac joint (Chronic) Sensorineural hearing loss (SNHL) of both ears (Chronic) Bilateral hearing aids Surgical History H/O ventral hernia repair (08/23/17) History of bilateral tubal ligation (~1980) History of carpal tunnel surgery (~1974) History of eyelid surgery (04/16/16) Bilateral eyelid lift Hx of thumb surgery (03/10/11) Left trapezial MCP joint arthroplasty 08/25/11 and right trapezial MCP joint arthroplasty 03/10/11 S/P cholecystectomy S/P colonoscopy (06/09/19) 2013- tubular adenoma S/P right knee arthroscopy (09/18/14) S/P ventral herniorrhaphy (11/06/16) 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 Sister Heart disease Hyperlipidemia Myocardial infarction Hypertension Sister No problems noted. Sister No problems noted. Sister COPD (chronic obstructive pulmonary disease) Brother Myocardial infarction Hypertension Brother No problems noted. Brother No problems noted. Son No problems noted. Son No problems noted. Daughter No problems noted. Daughter No problems noted. Maternal Grandfather Type 2 diabetes mellitus Maternal Grandmother No problems noted. Paternal Grandfather No problems noted. Paternal Grandmother No problems noted. 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 Pets and animals: Yes Pets and animals: cat(s) Sexually active: No Do you think of yourself as: straight/heterosexual Current gender identity: female What is your relationship status?: How often do you talk on the phone with friends or family?: three or more times per week Do you belong to any clubs or organized social groups?: no Panel score (0-1 are the most socially isolated patients): 2 Magda/Worship: [employer] Special magda needs: No Seatbelt use: always Helmet use: No Drive intox 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 Do you feel safe at home: Yes Do you feel safe in your relationship?: Yes History History 8 Para Hx # Term Pregnancies Multiple births Hx # Pregnancies Ectopic pregnancies 1 AB induced Hx Number of Living Children 4 AB spontaneous 3 Exam Const General: no acute distress Orientation: alert HENMT Head: no palpable skull fracture and normocephalic Ears: external ears normal General nose exam: external nose normal Mouth: moist mucous membranes Eyes General: appearance normal, both eyes and all related structures Neck Neck: normal visual inspection Resp Effort & Inspection: normal respiratory effort and able to speak in complete sentences Cardio Rate: regular rate Skin General skin exam: no rashes or lesions noted Neuro General: patient alert and patient oriented x3 Extrem General: normal to inspection Psych Mental Status: mental status grossly normal Course Vital Signs Vital signs: Vital Signs Temperature 37.2 C 01/28/22 12:18 Pulse 80 01/28/22 12:18 Respiratory Rate 18 01/28/22 12:18 Blood Pressure 134/77 01/28/22 12:18 Pulse Oximetry 98 01/28/22 12:18 Temperature 37.2 C 01/28/22 12:18 Temperature Source Skin 01/28/22 12:18 Pulse 80 01/28/22 12:18 Respiratory Rate 18 01/28/22 12:18 Blood Pressure 134/77 01/28/22 12:18 Blood Pressure Position Sitting 01/28/22 12:18 Pulse Oximetry 98 01/28/22 12:18 Oxygen Delivery Method Room Air 01/28/22 12:18 Oxygen Flow Rate 0 01/28/22 12:18 Pain Level 8 01/28/22 12:18 Comment 01/28/22 12:18
== END 2022-01-28 13:20 | disposition home or self-care (01) ==
PROVIDERS: Emergency Provider Emergency Medicine; PCP Nurse Practitioner Family
DX: S00.83XA Contusion of other part of head, initial encounter (principal); W18.09XA Striking against other object with subsequent fall, initial encounter; Y93.01 Activity, walking, marching and hiking; I10 Essential (primary) hypertension; Z77.22 Contact with and (suspected) exposure to environmental tobacco smoke (acute) (chronic)
CPT/HCPCS: 99281; 99282

== ENCOUNTER 2022-05-11 04:07 | Outpatient (CLI) | payer MEDICARE, SELFPAY ==
[2022-05-11 15:24] LABS: Calculated LDL 124 mg/dL (<100); Cholesterol 209 mg/dL (<200); HDL Cholesterol 66 mg/dL (40-60); TSH (W/Ref FT4) 2.05 uIU/mL (0.36-3.74); Triglyceride 96 mg/dL (<150)
== END 2022-05-11 04:08 | disposition home or self-care (01) ==
LOC: LOS 04:07
PROVIDERS: PCP Nurse Practitioner Family; Visit Provider Nurse Practitioner Family
DX: R73.03 Prediabetes (principal); E78.5 Hyperlipidemia, unspecified; I10 Essential (primary) hypertension
CPT/HCPCS: 36415; 80061; 83036; 84443

== ENCOUNTER 2022-05-22 01:49 | Outpatient (CLI) | payer MEDICARE, SELFPAY ==
--- NOTE | 2022-05-22 07:30 | DI.MAMMO_ITS ---
Exam(s) MAMMO SCREENING EXAM: MAMMO SCREENING CLINICAL HISTORY: screening,z12.39 TECHNIQUE: Mammograms were interpreted according to the usual protocol including computer analysis w [employer] CAD system, tomosynthesis and C-view imaging. COMPARISON: 2012 through 2019 FINDINGS: The breasts are composed of scattered fibroglandular densities, Breast Density category B. No suspicious masses or suspicious microcalcifications are seen. Biopsy marker clips again noted rig ht breast. No skin thickening or abnormal axillary lymph nodes are seen. There has been no significant change from prior exams. IMPRESSION: BI-RADS Category 1, Negative mammogram Yearly screening mammography is recommended. Breast Density - Category B, scattered fibroglandular densities. A negative radiographic report should not delay biopsy if a dominant or clinically suspicious mass is present. Up to ten percent of cancers are not identified on mammography. A negative report may reinforce clinical impression. Adenosis and dense breasts may obscure an underlying neoplasm. False positive reports average 6 to 10%. Patient will receive a letter notifying them of these results.
== END 2022-05-22 02:09 ==
LOC: DI 01:49
PROVIDERS: PCP Nurse Practitioner Family; Visit Provider Nurse Practitioner Family
DX: Z12.31 Encounter for screening mammogram for malignant neoplasm of breast (principal); R92.8 Other abnormal and inconclusive findings on diagnostic imaging of breast
CPT/HCPCS: 77063; 77067

== ENCOUNTER 2022-07-05 03:02 | Outpatient (CLI) | payer MEDICARE, SELFPAY ==
[2022-07-05 12:41] LABS: Anion Gap 8.1 mmol/L (3-11); CO2 29.9 mmol/L (21.0-32.0); Chloride 104 mmol/L (98-107); Potassium 4.1 mmol/L (3.5-5.1); Sodium 142 mmol/L (136-145)
[2022-07-05 13:06] LABS: BUN 19 mg/dL (7-18); CREATININE 0.7 mg/dL (0.55-1.02); Calcium 9.7 mg/dL (8.5-10.1); Estimated GFR 87.92 (mL/min/1.73m2); Glucose 106 mg/dL (74-106)
== END 2022-07-05 03:03 | disposition home or self-care (01) ==
LOC: LOS 03:02
PROVIDERS: PCP Nurse Practitioner Family; Visit Provider Nurse Practitioner Family
DX: I10 Essential (primary) hypertension
CPT/HCPCS: 36415; 80048; 87798; 86787

== ENCOUNTER 2022-07-10 02:06 | Outpatient (CLI) | payer MEDICARE, SELFPAY ==
--- NOTE | 2022-07-10 07:15 | DI.CT_ITS ---
Exam(s) CT HEAD WO EXAM: CT HEAD WO CLINICAL HISTORY: lt headache, ear pain, lt ear, r51.9,h92.02. TECHNIQUE: Imaging Protocol: Axial computed tomography images with coronal and sagittal reformatted images were created and reviewed COMPARISON: CT RENAL COLIC WO CONTRAST from 06/15/2008 FINDINGS: Ventricles and Extra axial spaces: Normal in size and morphology for the patient's age. Hemorrhage: None. Cerebral parenchyma: No acute territorial infarct is seen. There are subtle areas of decreased attenu ation in the white matter consistent with small vessel ischemic disease. Midline shift: None. Brainstem/Cerebellum: Normal. Calvarium: Normal. Visualized Paranasal sinuses/Mastoids: Clear. The external auditory canal is unremarkable. Soft Tissues: Unremarkable. IMPRESSION: No acute intracranial process. RADIATION DOSE DELIVERED: 720.25mGy.cm Total DLP DATA REPOSITORY: All CT scans at this facility are submitted to the National Radiology Data Registry (NRDR) Dose Index Registry (DIR) with the [employer] (ACR). RADIATION OPTIMIZATION: All CT scans at this facility use at least one of these dose optimization te chniques: automated exposure control; mA and/or kV adjustment per patient size (includes targeted exa ms where dose is matched to clinical indication); or iterative reconstruction.
== END 2022-07-10 02:26 ==
LOC: DI 02:06
PROVIDERS: PCP Nurse Practitioner Family; Visit Provider Nurse Practitioner Family
DX: R51.9 Headache, unspecified (principal); H92.02 Otalgia, left ear; I67.89 Other cerebrovascular disease
CPT/HCPCS: 70450

== ENCOUNTER → 2022-10-04 10:32 | Outpatient (BNVA) | payer MEDICARE, SELFPAY | PROVIDERS: PCP Nurse Practitioner Family; Referring Provider Nurse Practitioner Family; Visit Provider Nurse Practitioner Adult Health | DX: H92.02 Otalgia, left ear (principal); I10 Essential (primary) hypertension | CPT/HCPCS: 99204; 99215 ==

== ENCOUNTER → 2022-11-23 15:29 | Outpatient (BNVA) | payer MEDICARE, SELFPAY | PROVIDERS: PCP Nurse Practitioner Family; Referring Provider Nurse Practitioner Family; Visit Provider Nurse Practitioner Adult Health | DX: H92.02 Otalgia, left ear (principal) | CPT/HCPCS: 99213 ==

== ENCOUNTER → 2023-01-04 13:16 | Outpatient (BNVA) | payer MEDICARE, SELFPAY | PROVIDERS: PCP Nurse Practitioner Family; Referring Provider Nurse Practitioner Family; Visit Provider Nurse Practitioner Adult Health | DX: R51.9 Headache, unspecified (principal); H92.02 Otalgia, left ear; I10 Essential (primary) hypertension | CPT/HCPCS: 99213; 99214 ==

== ENCOUNTER → 2023-02-15 14:21 | Outpatient (BNVA) | payer MEDICARE, SELFPAY | PROVIDERS: PCP Nurse Practitioner Family; Referring Provider Nurse Practitioner Family; Visit Provider Nurse Practitioner Adult Health | DX: H92.02 Otalgia, left ear (principal); R51.9 Headache, unspecified; I10 Essential (primary) hypertension | CPT/HCPCS: 99213 ==

== ENCOUNTER 2023-07-05 03:53 | Outpatient (CLI) | payer MEDICARE, SELFPAY ==
[2023-07-05 12:54] LABS: Anion Gap 8.4 mmol/L (3-11); BUN 16 mg/dL (7-18); CO2 28.6 mmol/L (21.0-32.0); CREATININE 0.9 mg/dL (0.55-1.02); Calcium 9.7 mg/dL (8.5-10.1); Chloride 104 mmol/L (98-107); Estimated GFR 64.63 (mL/min/1.73m2); Glucose 111 mg/dL (74-106); Sodium 141 mmol/L (136-145)
[2023-07-05 14:15] LABS: Hemoglobin A1C 5.8 % (<5.7)
[2023-07-05 23:15] LABS: Hepatitis C Ab w Rflx HCV PCR Negative (Negative)
== END 2023-07-05 03:54 | disposition home or self-care (01) ==
LOC: LOS 03:53
PROVIDERS: PCP Nurse Practitioner Family; Visit Provider Nurse Practitioner Family
DX: Z00.00 Encounter for general adult medical examination without abnormal findings (principal); R73.03 Prediabetes
CPT/HCPCS: 36415; 80048; 86803; 83036

== ENCOUNTER → 2023-07-24 03:56 | Outpatient (CLI) | payer MEDICARE, SELFPAY ==
--- NOTE | 2023-07-24 08:00 | DI.MRI_ITS ---
Exam(s) MR LUMBAR SPINE WO EXAM: MR LUMBAR SPINE WO CLINICAL HISTORY: chronic low back pain,lumbosacral spondylosis w/o myelopathy,m47.817. TECHNIQUE: Multiplanar multisequence MRI of the Lumbar spine was performed. COMPARISON: MR MR LUMBAR SPINE WO from 12/03/2019 FINDINGS: Bones: The last intervertebral disc space is designated the L5/S1 level for the numbering purpose of this examination. The vertebral body heights are well maintained. There is a mild S-type thoracolum bar curvature of the spine. Endplate osteophytes are seen at multiple levels of the lumbar spine. F acet arthropathy is also seen at multiple levels of the lumbar spine. There are degenerative endplat e signal changes present. Cord: The conus tip ends at the T12 level. It is of normal size and signal intensity. T12-L1: No disc herniations or bulges are present. No central spinal canal or neural foraminal stenos is. L1-2: There is a mild diffuse disc bulge. No significant central spinal canal or right neural forami nal stenosis is seen. There is mild left neural foraminal stenosis. L2-3: There is a mild diffuse disc bulge. No significant central spinal canal stenosis is seen. The re is mild bilateral neural foraminal stenosis. L3-4: There is a mild diffuse disc bulge. There are degenerative changes of the facets. Mild narrow ing of the central spinal canal is present.There is moderate bilateral neural foraminal narrowing. L4-5: No disc herniations or bulges are present. There are degenerative changes of the facets. No si gnificant central spinal canal stenosis is present.There is moderate right and mild left neural kaitlynn inal stenosis. L5-S1: There is a mild diffuse disc bulge which extends into the left neural foramen. There are dege nerative changes of the facets. No central spinal canal stenosis. There is also no right neural for aminal stenosis. There is mild left neural foraminal narrowing. Soft tissues: The visualized SI joints and sacrum are well maintained. The paraspinal soft tissues ar e unremarkable. Visualized abdominal organs: Note is made of diverticulosis in the colon. IMPRESSION: Multilevel degenerative changes in the lumbar spine resulting in central spinal canal and neural fora bhavna stenosis as described above. Please see the above discussion for information at each level. DATA REPOSITORY:
== END ==
PROVIDERS: PCP Nurse Practitioner Family; Visit Provider Nurse Practitioner Family
DX: M47.817 Spondylosis without myelopathy or radiculopathy, lumbosacral region (principal)
CPT/HCPCS: 72148

== ENCOUNTER 2024-05-29 13:17 | Outpatient (REF) | payer MEDICARE, SELFPAY ==
[2024-05-29 21:30] LABS: Abs Immature Grans 0.01 10^3/uL (0.0-0.06); Absolute Basophil Count 0.06 10^3/uL (0.0-0.2); Absolute Eosinophil Count 0.05 10^3/uL (0.0-0.7); Absolute Lymphocyte Count 1.62 10^3/uL (1.2-3.4); Absolute Monocyte Count 0.61 10^3/uL (0.1-0.8); Absolute Neutrophil Count 6.12 10^3/uL (1.2-6.7); Basophils % 0.7 %; Eosinophils % 0.6 %; HCT 39.4 % (36.0-46.0); HGB 12.3 g/dL (11.2-15.7); Immature Grans % 0.1 %; Lymphocytes % 19.1 %; MCH 25.3 pg (27.0-33.0); MCHC 31.2 % (32.0-36.0); MCV 81 fL (80-95); MPV 10.6 fL (8.0-11.0); Monocytes % 7.2 %; Neutrophils % 72.3 %; Platelet Count 243 10^3/uL (130-400); RBC 4.87 10^6/uL (3.93-5.22); RDW 13.7 % (11.7-14.6); WBC 8.47 10^3/uL (4.4-10.8)
[2024-05-29 21:37] LABS: Anion Gap 6.4 mmol/L (3-11); BUN 17 mg/dL (7-18); CO2 32.6 mmol/L (21.0-32.0); CREATININE 0.7 mg/dL (0.55-1.02); Calcium 9.8 mg/dL (8.5-10.1); Chloride 106 mmol/L (98-107); Estimated GFR 86.83 (mL/min/1.73m2); Glucose 104 mg/dL (74-106); Potassium 3.7 mmol/L (3.5-5.1); Sodium 145 mmol/L (136-145)
[2024-06-02 17:12] LABS: Hemoglobin A1C 5.8 % (<5.7)
== END 2024-05-29 13:18 | disposition home or self-care (01) ==
LOC: LBN 13:17
PROVIDERS: PCP Nurse Practitioner Family; Visit Provider Physician Assistant
DX: N39.0 Urinary tract infection, site not specified; R82.89 Other abnormal findings on cytological and histological examination of urine; R73.03 Prediabetes
CPT/HCPCS: 80048; 83036; 85025; 87086

== ENCOUNTER 2024-05-30 00:14 | Outpatient (CLI) | payer MEDICARE, SELFPAY ==
--- NOTE | 2024-05-30 07:30 | DI.US_ITS ---
Exam(s) US RENAL EXAM: US RENAL CLINICAL HISTORY: RT FLANK PAIN,R10.9. TECHNIQUE: Lucero scale, color and spectral Doppler were used. COMPARISON: CT ABD PELVIS WITH CONTRAST from 07/11/2017 MR MR LUMBAR SPINE WO from 07/24/2023 FINDINGS: Renal size in cm: Right: 10.5. Left: 10.7. Echogenicity: Normal. Hydronephrosis: No. Cyst or mass: There is a 0.5 x 0.4 x 0.4 cm round well-circumscribed echogenic nodule in the right ki dney which may represent a benign lesion such as an angiomyolipoma. No suspicious renal masses are s een. Nephrolithiasis: No. Other findings: None. Bladder:Normal. Ureteral jets: Right: Visualized and unremarkable. Left: Not visualized on this examination. Prevoid vol:163 cc Postvoid vol:3 cc Renal color flow: Symmetric and within normal limits. IMPRESSION: No evidence of nephrolithiasis or hydronephrosis. DATA REPOSITORY:
== END 2024-05-30 00:34 ==
LOC: DI 00:14
PROVIDERS: PCP Nurse Practitioner Family; Visit Provider Physician Assistant
DX: R10.9 Unspecified abdominal pain (principal)
CPT/HCPCS: 76770

== ENCOUNTER 2024-06-27 00:47 | Outpatient (CLI) | payer MEDICARE, SELFPAY ==
[2024-06-27 12:55] LABS: Calculated LDL 108 mg/dL (<100); Cholesterol 206 mg/dL (<200); HDL Cholesterol 84 mg/dL (>or=50); Triglyceride 73 mg/dL (<150)
== END 2024-06-27 00:48 | disposition home or self-care (01) ==
LOC: LOS 00:47
PROVIDERS: PCP Nurse Practitioner Family; Visit Provider Nurse Practitioner Family
DX: E78.5 Hyperlipidemia, unspecified (principal); R01.1 Cardiac murmur, unspecified; N20.0 Calculus of kidney; I10 Essential (primary) hypertension
CPT/HCPCS: 36415; 80061

== ENCOUNTER 2024-07-23 01:08 | Outpatient (CLI) | payer MEDICARE, SELFPAY ==
--- NOTE | 2024-07-23 07:52 | DI.US_ITS ---
APPROVED REPORT EXAM: Comprehensive 2D, Doppler, and color-flow Echocardiogram Patient Location: Out-Patient Final Coat Sprayer: Jeffrey Prabhakar RDCS (AE) Indications: Systolic murmur Other Information Study Quality: Adequate. Technically limited study due to body habitus. Conclusion Normal left ventricular wall thickness and chamber size. Ejection fraction is 60%. Wall motion is n ormal Normal right ventricular size and function Mildly dilated left atrium. Normal right atrial size Aortic valve is sclerotic and trileaflet. Mean gradient is 8 mmHg. There is trace aortic regurgitat ion Mild mitral and tricuspid regurgitation Estimated right ventricular systolic pressure is 25 mmHg Wall motion Left Ventricle The left ventricle is normal size. The left ventricular systolic function is normal. The left ventric ular ejection fraction is within the normal range. There is normal left ventricular wall thickness. T here is normal LV segmental wall motion. There is no ventricular septal defect visualized. LVEF is 60 %. Right Ventricle The right ventricle is normal size. The right ventricular systolic function is normal. Atria Left atrium is mildly dilated. The right atrium size is normal. The interatrial septum is intact with no evidence for an atrial septal defect. Aortic Valve The aortic valve is sclerotic. Aortic valve is trileaflet. Mean gradient is 8 mmHg Trace aortic regur gitation. Mitral Valve The mitral valve is normal in structure. No evidence of mitral valve stenosis. Mild mitral regurgitat ion. Tricuspid Valve The tricuspid valve is normal in structure. There is no tricuspid valve stenosis. Mild tricuspid regu rgitation. Pulmonic Valve The pulmonary valve is normal in structure. There is no pulmonic valvular stenosis. Trace to mild pul merline regurgitation. Great Vessels The aortic root is normal in size. The ascending aorta is normal in size. Aortic arch is not well vis ualized. IVC is normal in size and collapses >50% with inspiration. Pericardium There is no pericardial effusion. 2D Dimensions IVSD d PLAX 0.70 cm F: 0.6-1.0 Ao Root d 2.96 cm F: 2.7 - 3.3 LVPW d PLAX 0.73 cm F: 0.6 - 1.0 Ao Asc Diam d 3.00 cm F: 2.3 - 3.1 LVID d PLAX 5.15 cm F: 3.8 - 5.2 LVDs 3.73 cm F: 2.2 - 3.5 LV EF Teichholz 53.1 % FS 27.51 % LV EDV (Teich) 126.6 mL LV ESV (Teich) 59.4 mL Stroke Vol Index (Teich) 37.98 M-Mode TAPSE 1.99 cm (M/F) >1.7 Auto EF LV EDV A4C 102.0 mL LV EDV A2C 83.8 mL LV EDV BP 90.9 mL LV ESV A4C 47.4 mL LV ESV A2C 38.4 mL LV ESV BP 42.9 mL LVEF(%) A4C 53.5 % LVEF(%) A2C 54.1 % LVEF(%) BP 52.8 % LV SV A4C 54.6 ml LV SV A2C 45.4 ml LV SV BP 48.0 ml LV CO A4C 3.5 L/min LV CO A2C 2.8 L/min LV CO BP 3.2 L/min HR A4C 64.40 BPM HR A2C 61.96 BPM LV EDV Index (BP) LA Volume LA Length A4C 5.5 cm LA Length A2C 5.5 cm LA Area A4C s 17.47 cm2 LA Area A2C s 15.72 cm2 LA Vol A4C A-L 47.24 mL LA Vol A2C A-L 38.35 mL LA Vol Biplane A-L 42.6 mL LA Vol/BSA A4C A-L LA Vol/BSA A2C A-L LA Vol/BSA BP A-L 24.1 mL/m2 LA Vol A4C MOD 44.5 mL LA Vol A2C MOD 37.3 mL LA Vol BP MOD 39.7 mL RA Volume RA Area A4C 7.9 cm2 RA ESV A4C (A-L) 14.8mL RA Vol/BSA A4C A-L RA Length A4C 3.5 cm RA ESV A4C (MOD) 13.7mL LV Diastology MV E' medial 0.071 (>0.07 m/s) MV E Vmax 0.71 (0.4-1.3 m/s) MV E/E' MED 10.01 (<14) MV A Vmax 1.00 (0.4-1.3 m/s) MV E' lateral 0.070 (>0.1 m/s) E/A Ratio 0.7 MV E/E' LAT 10.22 (<14) MV E' Average 0.071 m/s MV E/E'(average) 10.11 Aortic Valve AoV Vmax 1.97 m/s LVOT Vmax 1.14 m/s AoV Peak Grad 15.4 mmHg LVOT Peak Grad 5.2 mmHg AoV Area (Vmax) 1.75 cm2 LVOT VTI 0.253 m AoV VTI 0.454 m LVOT Mean Grad 2.8 mmHg AoV Mean Francisco. 1.37 m/s LVOT SV 76.68 mL AoV Mean Grad 8.6 mmHg LVOT Diam s 1.95 cm AoV Area (VTI) 1.69 cm2 AV Regurg Peak Gr. 15.45 mmHg Velocity Ratio 0.58 Mitral Valve MV DT 205 (160-240 msec) MR Vmax 5.34 m/s MV Vmax TIPS 1.02 m/s MR VTI 2.161 m MV Mean Grad 1.2 (<2mmHg) MR Peak Grad 114.1 mmHg MV VTI 0.298 m MR Mean Grad 78.9 mmHg MR PISA Radius 0.41 cm MR Aliasing Velocity 0.30 m/s Pulmonary Valve PV Vmax 1.18 (0.5-1.5 m/s) RVOT Vmax 0.51 m/s PV Peak Grad 5.6 mmHg RVOT Peak Gr. 1.0 mmHg PV Mean Francisco 0.81 m/s RVOT VTI 0.130 m PV Mean Grad 3.0 mmHg RVOT Mean Gr. 0.7 mmHg Tricuspid Valve RA Pressure 3.00 mmHg TR Vmax 2.33 m/s TV S' 0.15 m/s TR Peak Grad 21.7 mmHg RVSP (TR) 24.7 mmHg
== END 2024-07-23 01:28 ==
LOC: DI 01:08
PROVIDERS: PCP Nurse Practitioner Family; Visit Provider Internal Medicine Cardiovascular Disease
DX: I08.2 Rheumatic disorders of both aortic and tricuspid valves (principal); R01.1 Cardiac murmur, unspecified
CPT/HCPCS: 93306

== ENCOUNTER → 2024-08-12 12:47 | Outpatient (BNVA) | payer MEDICARE, SELFPAY | PROVIDERS: PCP Nurse Practitioner Family; Referring Provider Nurse Practitioner Family; Visit Provider Nurse Practitioner Adult Health | DX: G56.01 Carpal tunnel syndrome, right upper limb (principal); G25.0 Essential tremor | CPT/HCPCS: 99214 ==

== ENCOUNTER → 2024-09-11 10:46 | Outpatient (BNVA) | payer MEDICARE, SELFPAY | PROVIDERS: PCP Nurse Practitioner Family; Referring Provider Nurse Practitioner Family; Visit Provider Nurse Practitioner Adult Health | DX: G56.01 Carpal tunnel syndrome, right upper limb (principal); R25.1 Tremor, unspecified | CPT/HCPCS: 99213 ==

== ENCOUNTER 2024-12-01 11:34 | Outpatient (CLI) | payer MEDICARE, SELFPAY ==
--- NOTE | 2024-12-01 10:35 | DI.RAD_ITS ---
Exam(s) XR CERVICAL SPINE COMP 4-5V EXAM: XR CERVICAL SPINE COMP 4-5V CLINICAL HISTORY: ?cervical spine OA/stenosis. TECHNIQUE: 2D digital imaging was performed. Six images were obtained. AP, odontoid, lateral and bilateral oblique images were obtained. COMPARISON: No exams were available for comparison FINDINGS: The odontoid is intact. The lateral masses are well aligned. There is straightening of the normal cervical lordosis. There is disc space narrowing at C5-C6 and C6-C7. Endplate osteophytes are seen from C4-5 through C7-T1. No acute fracture or subluxation is present. There is neural foraminal narrowing on the right at C4-5, C5-C6 and C6-C7. There is narrowing on the left at C5-C6. Degenerative changes of the facets are seen, right greater than left. The cervical thoracic junction is well maintained. The prevertebral soft tissues are unremarkable. Lung apices are clear. IMPRESSION: Moderately severe degenerative changes in the cervical spine. DATA REPOSITORY: RADIATION DOSE DELIVERED:
== END 2024-12-01 11:35 | disposition home or self-care (01) ==
LOC: DIORS 11:34
PROVIDERS: PCP Nurse Practitioner Family; Referring Provider Nurse Practitioner Family; Visit Provider Student in an Organized Health Care Education/Training Program
DX: G56.01 Carpal tunnel syndrome, right upper limb (principal); M48.02 Spinal stenosis, cervical region
CPT/HCPCS: 99214; 20550; J1010; 72050

== ENCOUNTER 2024-12-24 11:48 | Outpatient (CLI) | payer MEDICARE, SELFPAY ==
--- NOTE | 2024-12-24 | DI.MRI_ITS ---
Exam(s) MR CERVICAL SPINE WO EXAM: MR CERVICAL SPINE WO CLINICAL HISTORY: PAIN, CERVICAL SPINAL STENOSIS, M48.02 TECHNIQUE: Multiplanar multisequence MRI of the cervical spine was performed without intravenous contrast. COMPARISON: No exams were available for comparison FINDINGS: CERVICOMEDULLARY JUNCTION: Intact with no evidence of cerebellar tonsillar ectopia. No obvious abnormality of the odontoid process. No evidence of Chiari 1 malformation. CERVICAL SPINAL CORD: There is no abnormal signal in the cervical spinal cord and no evidence of focal cord atrophy nor focal cord swelling. OSSEOUS:There is reversal of the normal curvature, this having epicenter at C5-6 level. There are no cervical fractures evident. No significant osseous lesions in the cervical vertebrae. INDIVIDUAL LEVELS: C2-3: Normal disc height. No disc herniation or central canal stenosis. There are mild bilateral facet arthropathy changes. No significant foraminal stenosis on either side at this level. C3-4: Minimal decreased disc height. There is a focal central subligamentous mild disc protrusion which indents the anterior thecal sac but not the spinal cord. The AP measurement of the canal at this level is 9 mm. There is mild degenerative change in the right facet joint. Mild right-sided foraminal stenosis. There appears to be fusion across the left facet joint at this level. Minimal left-sided foraminal stenosis. C4-5: Relatively preserved disc height at this level. No disc herniation. Central canal dimensions lower normal with AP measurement 12 mm. There are moderate degenerative changes in the right facet joint and mild degenerative changes in the left facet joint at this level. Moderate foraminal stenosis on the right side. Minimal foraminal stenosis on the left side. C5-6: This level exhibits advanced disc space narrowing and anterior osseous lipping. Posteriorly there is posterior bony ridging and annular bulging, slightly more prominent on the right side. There is central spinal canal stenosis with effacement of the anterior thecal sac at this level and AP canal measurement of only 6-7 mm. There is significant degenerative changes in the facet joints bilaterally at this level and significant bilateral foraminal stenosis. C6-7: This level exhibits uniform advanced disc space narrowing. Posteriorly there is mild annular bulging which is relatively symmetrical. Mild central canal stenosis with AP central canal measurement of 8-9 mm. Facet joints at this level exhibit mild-moderate degenerative changes. Mild-moderate bilateral foraminal stenosis. C7-T1: Preserved disc height. No disc herniation or central canal stenosis at this level. AP measurement of the canal at this level is 13 mm. There are some degenerative changes in the bilateral facet joints at this level but no evidence of foraminal stenosis on either side at this level. IMPRESSION: 1. Multilevel degenerative disc disease and degenerative changes as described above. 2. There is significant central spinal canal stenosis at C5-6 level with effacement of the anterior thecal sac at this level and AP measurement of the canal at this level measuring only 6-7 mm. There is no abnormal signal in the cervical cord at this level. There is also significant bilateral facet a rthropathy and bilateral foraminal stenosis at this level. 3. DATA REPOSITORY:
== END 2024-12-24 12:08 ==
LOC: DI 11:48
PROVIDERS: PCP Nurse Practitioner Family; Visit Provider Student in an Organized Health Care Education/Training Program
DX: M48.02 Spinal stenosis, cervical region (principal)
CPT/HCPCS: 72141

== ENCOUNTER 2025-02-26 12:39 | Outpatient (CLI) | payer MEDICARE, SELFPAY ==
--- NOTE | 2025-02-26 06:00 | DI.RAD_ITS ---
Exam(s) XR PAIN CLINIC CERVICAL SP 2V EXAM: XR PAIN CLINIC CERVICAL SP 2V CLINICAL HISTORY: DX: Cervical Radiculopathy TECHNIQUE: 2D and realtime digital imaging was performed. Radiologist not present. CONTRAST MATERIAL: None. COMPARISON: No exams were available for comparison FINDINGS: Fluoroscopy was provided for pain management therapy. Cervical level epidural steroid injection Please refer to procedure report or details. Radiation Exposure Index: Ka,r=2.20 mGy IMPRESSION: As above. RADIATION DOSE DELIVERED:
[2025-02-26 12:16] VITALS: BP 146/76; PULSE 72; RESP 18; TEMP 36.7; O2SAT 99
[2025-02-26 13:16] VITALS: BP 186/65; PULSE 75; PULSE 79; RESP 20
[2025-02-26 13:17] VITALS: PULSE 80; RESP 17
[2025-02-26 13:20] VITALS: PULSE 78; RESP 17
[2025-02-26 13:33] VITALS: BP 168/84; PULSE 80
[2025-02-26] MEDS: Epidural Tray 1 EACH MC (13:39)
[2025-02-26] MEDS: Omnipaque 240 MG/ML 50 ML BTL IJ (13:39)
[2025-02-26] MEDS: Dexamethasone Sod. Phos./Pres-Free 10 MG/ML VIAL IJ (13:39)
--- NOTE | 2025-03-03 12:44 | PDOC.PAIN_ITS ---
Date of service: 02/26/25 Time of Service: 13:30 Pain Managment Procedure Note Procedure Note Procedure Note: Procedure Note Cervical Interlaminar Epidural Steroid Injection Date of Service: February 26, 2025 Patient: Ivelisse Lange Provider: Willi George DO, MPH Ivelisse has been [facility] to [facility] for cervical epidural steroid injection. Pre-operative diagnosis: Cervical Radiculopathy ICD-10 M54.12 Post-operative diagnosis: Same Pre-procedure pain: VAS= 8/10 Comments: >3 months of >50% pain improvement with her last NANCY. She held her Vitamin E, ASA, and Turmeric Ivelisse was interviewed and the medical record was reviewed. There were no medical, pharmacologic, radiographic or other structural contraindications to attempting fluoroscopically guided cervical interlaminar epidural steroid injection. Risks, potential side effects, indications, and potential benefits of the procedure were reviewed with Ivelisse. Questions and concerns were addressed. After it was clear that the patient was fully informed about the procedure, the printed consent form was signed by the patient and myself. Ivelisse was placed in the prone position on the fluoroscopy table and automated blood pressure cuff as well as pulse oximeter was applied. A standard time-out procedure was performed. The skin entry point for entering the epidural space by a midline C7-T1 interlaminar approach was identified under fluoroscopy and marked. The skin entry point was thoroughly cleaned with Chlorhexadine preparation and the skin was draped. Next a mixture of 2 mls of 1% lidocaine was infiltrated into the area of the planned skin entry point and underlying subcutaneous tissues. Next an 18 gauge Tuohy needle was placed under fluoroscopic guidance and with loss of resistance technique into the epidural space utilizing multiple AP and 55 degree contralateral fluoroscopic views. Up on correct needle placement and loss of resistance, there were no paresthesia or return of blood or CSF through the needle. Next 1 mls of preservative-free Omnipaque 240 was injected with clear epidural spread in the A/P and oblique views. Next, a solution of 15 mg of preservative-free Dexamethasone was injected. This was followed with 1ml of preservative-free normal saline. No unusual discomfort was expressed by Ivelisse. The needle was withdrawn without difficulty. (49 mls of Omnipaque and 5 mg of Dexamethasone was wasted) Ievlisse was observed and was without hemodynamic, neurologic, or allergic reactions. Fluoroscopic images were digitally archived. Ivelisse's vital signs were stable throughout the procedure and were as recorded in the doc flowsheet by the nursing staff. If given, dosages of intravenous drugs for anxiolysis and analgesia were documented in MAR. Follow up plans and appointments were discussed with Ivelisse. Post procedure instruction was given as documented in nursing documentation and having met discharge criteria, I[facility] was [facility] from the [facility]. A retrospective review of interlaminar cervical ESIs found that approximately two-thirds of patients with symptomatic cervical radiculopathy from disc herniation were able to avoid surgery for up to 1 year with treatment. Success rate was improved with earlier injection (< 100 days from diagnosis). Karen EL, Nakia V, Janae L, Lilia AN, Donald DIAZ. Cervical epidural steroid injections for symptomatic disc herniations. J Spinal Disord Tech. 2005;19(3):183-6. COMMENTS: No apparent complications. Post-procedure pain: VAS= 0/10. Ivelisse to contact [facility] as needed. If at least 50% improvement in pain and/or function for at least 3 months is achieved, this procedure can be repeated. I personally completed the entire procedure. WILLI GEORGE DO, MPH ABPMR-subspecialty board certification in Pain Medicine [facility] Coding Conscious Sedation used for procedure: No CPT Codes: Inj Spine C/T w/Imaging - [id number] ([id number] ~G) Additional Codes: Date of Service () Diagnoses: Cervical radiculopathy
== END 2025-02-26 12:40 | disposition home or self-care (01) ==
LOC: PC 12:39
PROVIDERS: PCP Nurse Practitioner Family; Visit Provider Preventive Medicine Occupational Medicine
DX: M54.2 Cervicalgia (principal); M54.12 Radiculopathy, cervical region
CPT/HCPCS: 62321; 72040; J1100; Q9967